=== PATIENT | female | born 1940 | race Hispanic/Latino ===

== ENCOUNTER 2019-01-22 06:40 | Day surgery (SDC) | payer OTHER ==
[2019-01-22] VITALS (7 sets, daily range): BP systolic 83–120; BP diastolic 35–57
[~2019-01-22] VITALS: Ht 157.5 cm; Wt 72.6 kg
[~2019-01-22 06:40] MED LIST: AMOX500C2 PO; OMEP20TA25 PO; SODIUM CHLORIDE 0.9% 1000ML 1,000 ML IV ONE
[2019-01-22] MEDS ORDERED: vitamin d2 PO (07:40)
[2019-01-22] MEDS ORDERED: MECL-111 PO (07:40)
[2019-01-22] MEDS ORDERED: HYDR25TA PO (07:40)
[2019-01-22] MEDS ORDERED: PROPOFOL 10 MG/ML 20ML VIAL IV ONE ×2 (10:33→11:10)
[2019-01-22] MEDS ORDERED: LIDOCAINE HCL-MPF 2% 5ML VIAL ONE (10:34)
== END 2019-01-22 12:00 | disposition home or self-care (01) ==
LOC: ENDO 06:40 → DAH 06:40 → ENDO 12:00
PROVIDERS: ATTEND Internal Medicine Gastroenterology
DX: K29.50 Unspecified chronic gastritis without bleeding (principal); K57.30 Diverticulosis of large intestine without perforation or abscess without bleeding; K31.89 Other diseases of stomach and duodenum; I10 Essential (primary) hypertension; E11.9 Type 2 diabetes mellitus without complications; E78.5 Hyperlipidemia, unspecified; R19.7 Diarrhea, unspecified; Z90.49 Acquired absence of other specified parts of digestive tract; Z98.890 Other specified postprocedural states; Z79.899 Other long term (current) drug therapy; E66.01 Morbid (severe) obesity due to excess calories; Z68.29 Body mass index [BMI] 29.0-29.9, adult
CPT/HCPCS: 43242; 82948 ×2; 88108; 88305; 93005; A4215; A4606; J2704 ×2; J3490; J7030

== ENCOUNTER 2020-10-12 08:52 | Day surgery (SDC) | payer OTHER ==
[~2020-10-12] VITALS: Ht 160 cm; Wt 81.6 kg
[2020-10-12] VITALS (15 sets, daily range): BP systolic 113–145; BP diastolic 58–87
[~2020-10-12 08:52] MED LIST changes: -AMOX500C2 PO; +HYDR25TA PO; +MECL-160 PO; +vitamin d2 PO
[2020-10-12] MEDS ORDERED: PROPOFOL 10 MG/ML 20ML VIAL IV ONE ×2 (10:30)
[2020-10-12] MEDS ORDERED: LIDOCAINE HCL 2% 20ML ONE (10:31)
[2020-10-12] MEDS ORDERED: PHENYLEPHRINE HCL 10 MG/ML 1ML VIAL IV ONE (10:55)
== END 2020-10-12 13:00 | disposition home or self-care (01) ==
LOC: DAH 08:52 → ENDO 08:52
PROVIDERS: ATTEND Internal Medicine Gastroenterology
DX: K31.89 Other diseases of stomach and duodenum (principal); D49.0 Neoplasm of unspecified behavior of digestive system; R19.7 Diarrhea, unspecified; E78.5 Hyperlipidemia, unspecified; I10 Essential (primary) hypertension; R93.1 Abnormal findings on diagnostic imaging of heart and coronary circulation; Z98.891 History of uterine scar from previous surgery; Z90.49 Acquired absence of other specified parts of digestive tract; Z98.890 Other specified postprocedural states; Z72.89 Other problems related to lifestyle; Z86.010 Personal history of colon polyps; Z79.899 Other long term (current) drug therapy
CPT/HCPCS: 43238; 71045; 93005 ×2; A4215 ×2; A4221; A4222; A4223; A4606; A4620; A4663; C9803; J2370; J2704 ×2; J3490; J7030; U0003